=== PATIENT | female | born 1970 | race American Indian/Alaskan Native ===

== ENCOUNTER 2021-05-01 15:21 | Emergency (ER) | payer OTHER ==
--- NOTE | 2021-05-01 16:11 | XRay Report ---
CHEST 2 VIEWS INDICATION / CLINICAL INFORMATION: CHEST PAIN. COMPARISON: None available. FINDINGS: SUPPORT DEVICES: None. HEART / MEDIASTINUM: No significant abnormality. LUNGS / PLEURA: No significant pulmonary or pleural abnormality. No pneumothorax. ADDITIONAL FINDINGS: No significant additional findings. IMPRESSION: 1. No acute findings. Signer Name: Carmelo Gold MD Signed: 05/01/2021 4:07 PM Workstation Name: [id number]
[2021-05-01 16:35] LABS: Basophils % (Auto) 0.3 % (0.0-1.8); Eosinophils # (Auto) 0.1 K/mm3 (0.0-0.4); Eosinophils % (Auto) 1.3 % (0.0-4.3); Hematocrit 47.1 % (30.3-42.9); Hemoglobin 15.5 gm/dl (10.1-14.3); Lymphocytes % (Auto) 37.8 % (13.4-35.0); Mean Corpuscular HGB Conc 33 % (30-34); Mean Corpuscular Volume 89 fl (79-97); Monocytes # (Auto) 0.3 K/mm3 (0.0-0.8); Monocytes % (Auto) 6.2 % (0.0-7.3); Platelet Count 158 K/mm3 (140-440); Red Blood Count 5.31 M/mm3 (3.65-5.03); Red Cell Distribution Width 13.3 % (13.2-15.2)
[2021-05-01] MEDS ORDERED: NITROGLYCERIN 0.4 MG TAB SUBL SL PRN (16:50)
--- NOTE | 2021-05-01 16:53 | Emergency Department Report ---
ED General Adult HPI - General Chief complaint: Chest Pain Stated complaint: CHEST PAIN Time Seen by Provider: 05/01/21 15:37 Source: patient, EMS Mode of arrival: Ambulatory Limitations: No Limitations - History of Present Illness Initial comments: Patient presents by ambulance secondary to chest pain. She has been having ongoing chest pain for several days. She actually reportedly was at [place] yesterday and had a cardiac MRI done which showed an enlarged heart. Patient does not know if she has had a heart attack. She just came in because she has been having chest pain and shortness of breath. The pain is described as tightness in the substernal and left chest area. It radiates into the left arm and left jaw. She has had no fevers or chills. There is no cough or congestion associated with this. Patient has not noticed pain or swelling in the legs. EMS did administer nitro with improvement in her pain. There is no history of recent travel or trauma. Severity scale (0 -10): 4 - Related Data Previous Rx's Medication Instructions Recorded Last Taken Type Nitroglycerin [Nitrostat] 0.4 mg SL .Q5MIN PRN #30 tablet 05/01/21 Unknown Rx Allergies Allergy/AdvReac Type Severity Reaction Status Date / Time aspirin AdvReac Unknown Verified 05/01/21 15:25 ED Review of Systems ROS: Stated complaint: CHEST PAIN Other details as noted in HPI Comment: All other systems reviewed and negative Constitutional: denies: fever Eyes: denies: vision change ENT: denies: throat pain Respiratory: denies: cough Cardiovascular: as per HPI Endocrine: denies: unexplained weight loss Gastrointestinal: denies: abdominal pain Genitourinary: denies: dysuria Musculoskeletal: denies: back pain Skin: denies: rash Neurological: denies: headache Hematological/Lymphatic: denies: easy bruising ED Past Medical Hx - Past Medical History Hx Hypertension: Yes Additional medical history: Enlarged heart - Family History Family history: hypertension, other (Negative for premature coronary artery disease) - Medications Home Medications: Home Medications Medication Instructions Recorded Confirmed Last Taken Type Nitroglycerin [Nitrostat] 0.4 mg SL .Q5MIN PRN #30 tablet 05/01/21 Unknown Rx ED Physical Exam - General Limitations: No Limitations, Other (Pulse ox noted and normal) General appearance: alert, in no apparent distress - Head Head exam: Present: atraumatic, normocephalic - Eye Eye exam: Present: normal appearance, PERRL, EOMI. Absent: scleral icterus - ENT ENT exam: Present: normal orophraynx, normal external ear exam - Neck Neck exam: Present: normal inspection. Absent: tenderness, meningismus - Respiratory Respiratory exam: Present: normal lung sounds bilaterally. Absent: respiratory distress - Cardiovascular Cardiovascular Exam: Present: regular rate, normal rhythm - GI/Abdominal GI/Abdominal exam: Present: soft. Absent: tenderness - Extremities Exam Extremities exam: Present: normal capillary refill. Absent: pedal edema, calf tenderness - Back Exam Back exam: Absent: CVA tenderness (R), CVA tenderness (L) - Neurological Exam Neurological exam: Present: alert, oriented X3, CN II-XII intact. Absent: motor sensory deficit - Psychiatric Psychiatric exam: Present: normal affect, normal mood - Skin Skin exam: Present: warm, dry ED Course Vital Signs 05/01/21 05/01/21 05/01/21 15:22 16:17 17:41 Temperature 98.1 F 97.3 F L Pulse Rate 64 89 88 Respiratory 20 16 16 Rate Blood Pressure 160/90 Blood Pressure 160/90 167/94 [Left] O2 Sat by Pulse 98 100 97 Oximetry - Reevaluation(s) Reevaluation #1: 05/01/21 16:53 EMS have been met. Labs and EKG and x-ray have been ordered. Old records have been reviewed. Now, patient states that her pain is returning. Further nitrates have been ordered. Labs and EKG are still pending. Reevaluation #2: 05/01/21 17:51 Labs are noted and the patient was discharged. ED Medical Decision Making - Lab Data Result diagrams: 05/01/21 16:08 05/01/21 16:08 Rhythm strip: Normal sinus rhythm without ectopy. Monitor observe 10 seconds. - EKG Data -: EKG Interpreted by Me - EKG Data 05/01/21 17:35 [id number] shows normal sinus rhythm at 62. There is no ST elevation to suggest STEMI. There is ST depression in leads III and aVF. QRS is normal at 91. QT corrected is normal at 441. There is no old EKG for comparison. Patient has poor R wave progression. There is T wave flattening in aVL. - Radiology Data Radiology results: report reviewed - Medical Decision Making Patient who presented with chest pain or shortness of breath. She has had cardiomyopathy diagnosed and had a recent cardiac MRI. She states that stress test was done which is what demonstrated the cardiomyopathy. She was not told that she has ischemic heart disease. She is scheduled to see her medical laboratory technologist on the . At this time, there is no evidence of STEMI. She has no evidence of pneumonia or pneumothorax. She does not appear to be toxic. She does not have a wide mediastinum suggestive of aortic dissection. I suspect that her symptoms are more related to her cardiomyopathy and possibly cardiomegaly which she reports. She certainly does not have a history of ACS. She was treated symptomatically and referred for outpatient evaluation and follow-up. Heart score is 4. This would not necessitate admission. Critical Care Time: No Critical care attestation.: If time is entered above; I have spent that time in minutes in the direct care of this critically ill patient, excluding procedure time. ED Disposition Clinical Impression: Substernal chest pain, Shortness of breath, History of cardiomyopathy Disposition: 01 HOME / SELF CARE / HOMELESS Is pt being admited?: No Condition: Stable Instructions: Nonspecific Chest Pain, Adult, Shortness of Breath, Adult, [id number], Pain Without a Known Cause Additional Instructions: Take an aspirin every day. Call your medical laboratory technologist tomorrow for follow-up. Return for problems. Drink fluids. Prescriptions: Nitroglycerin [Nitrostat] 0.4 mg SL .Q5MIN PRN #30 tablet PRN Reason: Chest Pain Referrals: PRIMARY CARE, [Referring] - 3-5 Days GELY ROSARIO MD [Staff Physician] - 3-5 Days
[2021-05-01 16:56] LABS: Alanine Aminotransferase 37 units/L (7-56); Albumin 4.4 g/dL (3.9-5); Blood Urea Nitrogen 5 mg/dL (7-17); Calcium 9.5 mg/dL (8.4-10.2); Hemolysis Index 24
[2021-05-01 17:01] LABS: BUN/Creatinine Ratio 7
[2021-05-01 18:15] VITALS: BP 160/77
--- NOTE | 2021-05-03 09:13 | Electrocardiograph Report ---
[facility] Test Date: 2021-05-01 Test Time: 16:58:42 Pat Name: JUDITH RAYMUNDO Department: Room: Gender: F [employer]: CRISTIANA : 1970 Requested By: MARGARITO ALLISON Order Number: [id number] Reading MD: Senthil Bond Measurements Intervals [place] Rate: 62 P: 50 UT: 166 QRS: 219 QRSD: 91 T: 64 QT: 436 QTc: 441 Interpretive Statements Sinus rhythm nonspecific st-t No previous ECG available for comparison Electronically Signed On 05-03-2021 9:12:29 EST by Senthil Bond
== END 2021-05-01 18:39 | disposition home or self-care (01) ==
LOC: ED 15:21
DX: R07.89 Other chest pain (principal); R06.02 Shortness of breath; Z86.79 Personal history of other diseases of the circulatory system; I10 Essential (primary) hypertension; Z88.6 Allergy status to analgesic agent
CPT/HCPCS: 36415; 71046; 80053; 84484; 85025; 93005; 99284

== ENCOUNTER 2021-08-19 23:59 | Emergency (ER) | payer OTHER ==
[2021-08-20] MEDS ORDERED: HALOPERIDOL LACTATE 5 MG/1 ML INJ IM PRN (00:14)
[2021-08-20] MEDS ORDERED: LORazepam 2 MG TAB PO PRN ×2 (00:14)
[2021-08-20] MEDS ORDERED: chlordiazePOXIDE 25 MG CAP PO PRN ×2 (00:14)
[2021-08-20] MEDS ORDERED: LORazepam 2 MG/ML VIAL IM PRN (00:14)
--- NOTE | 2021-08-20 00:17 | Emergency Department Report ---
ED General Adult HPI - General Chief complaint: Psych Stated complaint: ETOH OVERDOSE Time Seen by Provider: 08/20/21 00:12 Source: patient, EMS (Verbal report received from emergency medical services. EMS documentation not available at time of chart dictation ), RN notes reviewed, old records reviewed Mode of arrival: Stretcher Limitations: Other (Intoxication. Patient not forthcoming) - History of Present Illness Initial comments: The patient was evaluated in the emergency department for symptoms described in the history of present illness. He/she was evaluated in the context of the global COVID-19 pandemic, which necessitated consideration that the patient might be at risk for infection with the virus that causes COVID-19. Institutional protocols and algorithms that pertain to the evaluation of patients at risk for COVID-19 are in a state of rapid change based on information released by regulatory bodies including the CDC and federal and state organizations. These policies and algorithms were followed during the patient's care in the emergency department. Please note that these policies, procedures and recommendations changed on a rapid basis. This is a 51-year-old female. She is not known to myself previously. She is brought to the hospital by emergency medical services. History essentially obtained entirely from EMS. EMS reports the patient was found down, with alcohol container, and and there was concern that the patient may have possibly overdosed on Benadryl. The patient's last known well time is not known. Time of ingestion is not known. EMS reports unremarkable vital signs in the field. The patient herself is uncooperative and agitated. She is intoxicated. She does not describe the qualitative nature of her symptoms. She does not describe aggravating relieving factors. No additional history is available at this time. -: unknown - Related Data Previous Rx's Medication Instructions Recorded Last Taken Type Nitroglycerin [Nitrostat] 0.4 mg SL .Q5MIN PRN #30 tablet 05/01/21 Unknown Rx Allergies Allergy/AdvReac Type Severity Reaction Status Date / Time aspirin AdvReac Unknown Verified 05/01/21 15:25 ED Review of Systems ROS: Stated complaint: ETOH OVERDOSE Other details as noted in HPI Comment: Unobtainable due to pts medical conditions ED Past Medical Hx - Past Medical History Hx Hypertension: Yes Additional medical history: Enlarged heart - Social History Smoking Status: Former Smoker Substance Use Type: Cocaine, Heroin - Medications Home Medications: Home Medications Medication Instructions Recorded Confirmed Last Taken Type Nitroglycerin [Nitrostat] 0.4 mg SL .Q5MIN PRN #30 tablet 05/01/21 Unknown Rx ED Physical Exam - General Limitations: Other (Patient is intoxicated and not forthcoming) General appearance: appears intoxicated - Head Head exam: Present: atraumatic, normocephalic - Eye Eye exam: Present: normal appearance, EOMI. Absent: nystagmus - ENT ENT exam: Present: normal exam, normal orophraynx, mucous membranes moist, normal external ear exam - Neck Neck exam: Present: normal inspection, full ROM. Absent: tenderness, menin gismus - Respiratory Respiratory exam: Present: normal lung sounds bilaterally. Absent: respiratory distress, wheezes, rales, rhonchi, stridor, decreased breath sounds - Cardiovascular Cardiovascular Exam: Present: regular rate, normal rhythm, normal heart sounds. Absent: bradycardia, tachycardia, irregular rhythm, systolic murmur, diastolic murmur, rubs, gallop - GI/Abdominal GI/Abdominal exam: Present: soft. Absent: distended, tenderness, guarding, rebound, rigid, pulsatile mass - Extremities Exam Extremities exam: Present: normal inspection, full ROM, other (2+ pulses noted in the bilateral upper and lower extremities. There is no palpable cord. negative Homans sign. Muscular compartments are soft. The pelvis is stable.). Absent: pedal edema, calf tenderness - Back Exam Back exam: Present: normal inspection. Absent: tenderness, CVA tenderness (R), CVA tenderness (L), paraspinal tenderness, vertebral tenderness - Neurological Exam Neurological exam: Present: altered (The patient awake. The patient is intoxicated), normal gait, other (There is no facial droop. The tongue is midline. EOMI. 5 out of 5 strength in 4 extremities.) - Psychiatric Psychiatric exam: Present: agitated - Skin Skin exam: Present: warm, dry, intact, normal color. Absent: rash ED Course Vital Signs 08/20/21 08/20/21 08/20/21 00:16 00:30 00:46 Temperature 97.8 F Pulse Rate 79 70 63 Respiratory 19 15 16 Rate Blood Pressure 130/97 134/87 133/89 Blood Pressure 134/87 [Left] O2 Sat by Pulse 98 94 94 Oximetry - Reevaluation(s) Reevaluation #1: 08/20/21 03:29 Differential diagnosis, include but not limited to: Closed head injury, cervical spine injury, alcohol intoxication, overdose, medical clearance for psychiatric placement Assessment and plan: 51-year-old female with possible alcohol overdose and Benadryl. She is placed on a 1013. Screening laboratory studies are essentially unremarkable. COVID swab is pending. Given alcohol intoxication and possible trauma, noncontrast CT scan of the brain and cervical spine are obtained. Noncontrast CT scan of the brain and cervical spine negative for acute findings. Psychiatric consultation is requested. COVID swab is pending. The ER will follow along as the patient provides COVID swab. holding orders are initiated. At this point time, this patient does not appear to have an immediate medical contraindication to psychiatric admission, evaluation, consultation and placement. 08/20/21 03:29 ED Medical Decision Making - Lab Data Result diagrams: 08/20/21 00:50 08/20/21 00:50 Vital Signs 08/20/21 08/20/21 08/20/21 00:16 00:30 00:46 Temperature 97.8 F Pulse Rate 79 70 63 Respiratory 19 15 16 Rate Blood Pressure 130/97 134/87 133/89 Blood Pressure 134/87 [Left] O2 Sat by Pulse 98 94 94 Oximetry Lab Results 08/20/21 08/20/21 08/20/21 Range/Units 00:42 00:42 00:50 WBC 6.6 (4.5-11.0) K/mm3 RBC 5.03 (3.65-5.03) M/mm3 Hgb 15.0 H (10.1-14.3) gm/dl Hct 44.6 H (30.3-42.9) % MCV 89 (79-97) fl MCH 30 (28-32) pg MCHC 34 (30-34) % RDW 13.4 (13.2-15.2) % Plt Count 191 (140-440) K/mm3 Lymph % (Auto) 40.1 H (13.4-35.0) % [place] % (Auto) 5.0 (0.0-7.3) % Eos % (Auto) 0.6 (0.0-4.3) % Baso % (Auto) 0.2 (0.0-1.8) % Lymph # (Auto) 2.7 (1.2-5.4) K/mm3 [place] # (Auto) 0.3 (0.0-0.8) K/mm3 Eos # (Auto) 0.0 (0.0-0.4) K/mm3 Baso # (Auto) 0.0 (0.0-0.1) K/mm3 Seg Neutrophils % 54.1 (40.0-70.0) % Seg Neutrophils # 3.6 (1.8-7.7) K/mm3 PT (12.2-14.9) Sec. INR (0.87-1.13) APTT (24.2-36.6) Sec. Sodium (137-145) mmol/L Potassium (3.6-5.0) mmol/L Chloride (98-107) mmol/L Carbon Dioxide (22-30) mmol/L Anion Gap mmol/L BUN (7-17) mg/dL Creatinine (0.6-1.2) mg/dL Estimated GFR ml/min BUN/Creatinine Ratio % Glucose (65-100) mg/dL Calcium (8.4-10.2) mg/dL Magnesium (1.7-2.3) mg/dL Total Bilirubin (0.1-1.2) mg/dL AST (5-40) units/L ALT (7-56) units/L Alkaline Phosphatase (35-129) units/L Total Creatine Kinase (30-135) units/L Total Protein (6.3-8.2) g/dL Albumin (3.9-5) g/dL Albumin/Globulin Ratio % TSH (0.270-4.200) mlU/mL Urine Color Yellow (Yellow) Urine Turbidity Clear (Clear) Urine pH 5.0 (5.0-7.0) Ur Specific [place] 1.008 (1.003-1.030) Urine Protein <15 mg/dl (Negative) mg/dL Urine Glucose (UA) Neg (Negative) mg/dL Urine Ketones Neg (Negative) mg/dL Urine Blood Neg (Negative) Urine Nitrite Neg (Negative) Urine Bilirubin Neg (Negative) Urine Urobilinogen < 2.0 (<2.0) mg/dL Ur Leukocyte Esterase Neg (Negative) Urine WBC (Auto) 1.0 (0.0-6.0) /HPF Urine RBC (Auto) < 1.0 (0.0-6.0) /HPF U Epithel Cells (Auto) 1.0 (0-13.0) /HPF Salicylates (2.8-20.0) mg/dL Urine Opiates Screen Presumptive negative Urine Methadone Screen Presumptive negative Acetaminophen (10.0-30.0) ug/mL Ur Barbiturates Screen Presumptive negative Ur Phencyclidine Scrn Presumptive negative Ur Amphetamines Screen Presumptive negative U Benzodiazepines Scrn Presumptive negative Urine Cocaine Screen Presumptive negative U Marijuana (THC) Screen Presumptive negative Drugs of Abuse Note Disclamer Plasma/Serum Alcohol (0-0.07) % 08/20/21 08/20/21 08/20/21 Range/Units 00:50 00:50 00:50 WBC (4.5-11.0) K/mm3 RBC (3.65-5.03) M/mm3 Hgb (10.1-14.3) gm/dl Hct (30.3-42.9) % MCV (79-97) fl MCH (28-32) pg MCHC (30-34) % RDW (13.2-15.2) % Plt Count (140-440) K/mm3 Lymph % (Auto) (13.4-35.0) % [place] % (Auto) (0.0-7.3) % Eos % (Auto) (0.0-4.3) % Baso % (Auto) (0.0-1.8) % Lymph # (Auto) (1.2-5.4) K/mm3 [place] # (Auto) (0.0-0.8) K/mm3 Eos # (Auto) (0.0-0.4) K/mm3 Baso # (Auto) (0.0-0.1) K/mm3 Seg Neutrophils % (40.0-70.0) % Seg Neutrophils # (1.8-7.7) K/mm3 PT (12.2-14.9) Sec. INR (0.87-1.13) APTT (24.2-36.6) Sec. Sodium 143 (137-145) mmol/L Potassium 3.7 (3.6-5.0) mmol/L Chloride 105.6 (98-107) mmol/L Carbon Dioxide 25 (22-30) mmol/L Anion Gap 16 mmol/L BUN 7 (7-17) mg/dL Creatinine 0.7 (0.6-1.2) mg/dL Estimated GFR > 60 ml/min BUN/Creatinine Ratio 10 % Glucose 107 H (65-100) mg/dL Calcium 9.0 (8.4-10.2) mg/dL Magnesium (1.7-2.3) mg/dL Total Bilirubin 0.20 (0.1-1.2) mg/dL AST 39 (5-40) units/L ALT 27 (7-56) units/L Alkaline Phosphatase 84 (35-129) units/L Total Creatine Kinase (30-135) units/L Total Protein 7.1 (6.3-8.2) g/dL Albumin 4.3 (3.9-5) g/dL Albumin/Globulin Ratio 1.5 % TSH 1.550 (0.270-4.200) mlU/mL Urine Color (Yellow) Urine Turbidity (Clear) Urine pH (5.0-7.0) Ur Specific [place] (1.003-1.030) Urine Protein (Negative) mg/dL Urine Glucose (UA) (Negative) mg/dL Urine Ketones (Negative) mg/dL Urine Blood (Negative) Urine Nitrite (Negative) Urine Bilirubin (Negative) Urine Urobilinogen (<2.0) mg/dL Ur Leukocyte Esterase (Negative) Urine WBC (Auto) (0.0-6.0) /HPF Urine RBC (Auto) (0.0-6.0) /HPF U Epithel Cells (Auto) (0-13.0) /HPF Salicylates < 0.3 L (2.8-20.0) mg/dL Urine Opiates Screen Urine Methadone Screen Acetaminophen (10.0-30.0) ug/mL Ur Barbiturates Screen Ur Phencyclidine Scrn Ur Amphetamines Screen U Benzodiazepines Scrn Urine Cocaine Screen U Marijuana (THC) Screen Drugs of Abuse Note Plasma/Serum Alcohol (0-0.07) % 08/20/21 08/20/21 08/20/21 Range/Units 00:50 00:50 00:50 WBC (4.5-11.0) K/mm3 RBC (3.65-5.03) M/mm3 Hgb (10.1-14.3) gm/dl Hct (30.3-42.9) % MCV (79-97) fl MCH (28-32) pg MCHC (30-34) % RDW (13.2-15.2) % Plt Count (140-440) K/mm3 Lymph % (Auto) (13.4-35.0) % [place] % (Auto) (0.0-7.3) % Eos % (Auto) (0.0-4.3) % Baso % (Auto) (0.0-1.8) % Lymph # (Auto) (1.2-5.4) K/mm3 [place] # (Auto) (0.0-0.8) K/mm3 Eos # (Auto) (0.0-0.4) K/mm3 Baso # (Auto) (0.0-0.1) K/mm3 Seg Neutrophils % (40.0-70.0) % Seg Neutrophils # (1.8-7.7) K/mm3 PT 12.7 (12.2-14.9) Sec. INR 0.84 L (0.87-1.13) APTT 29.2 (24.2-36.6) Sec. Sodium (137-145) mmol/L Potassium (3.6-5.0) mmol/L Chloride (98-107) mmol/L Carbon Dioxide (22-30) mmol/L Anion Gap mmol/L BUN (7-17) mg/dL Creatinine (0.6-1.2) mg/dL Estimated GFR ml/min BUN/Creatinine Ratio % Glucose (65-100) mg/dL Calcium (8.4-10.2) mg/dL Magnesium (1.7-2.3) mg/dL Total Bilirubin (0.1-1.2) mg/dL AST (5-40) units/L ALT (7-56) units/L Alkaline Phosphatase (35-129) units/L Total Creatine Kinase (30-135) units/L Total Protein (6.3-8.2) g/dL Albumin (3.9-5) g/dL Albumin/Globulin Ratio % TSH (0.270-4.200) mlU/mL Urine Color (Yellow) Urine Turbidity (Clear) Urine pH (5.0-7.0) Ur Specific [place] (1.003-1.030) Urine Protein (Negative) mg/dL Urine Glucose (UA) (Negative) mg/dL Urine Ketones (Negative) mg/dL Urine Blood (Negative) Urine Nitrite (Negative) Urine Bilirubin (Negative) Urine Urobilinogen (<2.0) mg/dL Ur Leukocyte Esterase (Negative) Urine WBC (Auto) (0.0-6.0) /HPF Urine RBC (Auto) (0.0-6.0) /HPF U Epithel Cells (Auto) (0-13.0) /HPF Salicylates (2.8-20.0) mg/dL Urine Opiates Screen Urine Methadone Screen Acetaminophen 5.0 L (10.0-30.0) ug/mL Ur Barbiturates Screen Ur Phencyclidine Scrn Ur Amphetamines Screen U Benzodiazepines Scrn Urine Cocaine Screen U Marijuana (THC) Screen Drugs of Abuse Note Plasma/Serum Alcohol 0.15 H (0-0.07) % 08/20/21 Range/Units 00:50 WBC (4.5-11.0) K/mm3 RBC (3.65-5.03) M/mm3 Hgb (10.1-14.3) gm/dl Hct (30.3-42.9) % MCV (79-97) fl MCH (28-32) pg MCHC (30-34) % RDW (13.2-15.2) % Plt Count (140-440) K/mm3 Lymph % (Auto) (13.4-35.0) % [place] % (Auto) (0.0-7.3) % Eos % (Auto) (0.0-4.3) % Baso % (Auto) (0.0-1.8) % Lymph # (Auto) (1.2-5.4) K/mm3 [place] # (Auto) (0.0-0.8) K/mm3 Eos # (Auto) (0.0-0.4) K/mm3 Baso # (Auto) (0.0-0.1) K/mm3 Seg Neutrophils % (40.0-70.0) % Seg Neutrophils # (1.8-7.7) K/mm3 PT (12.2-14.9) Sec. INR (0.87-1.13) APTT (24.2-36.6) Sec. Sodium (137-145) mmol/L Potassium (3.6-5.0) mmol/L Chloride (98-107) mmol/L Carbon Dioxide (22-30) mmol/L Anion Gap mmol/L BUN (7-17) mg/dL Creatinine (0.6-1.2) mg/dL Estimated GFR ml/min BUN/Creatinine Ratio % Glucose (65-100) mg/dL Calcium (8.4-10.2) mg/dL Magnesium 2.10 (1.7-2.3) mg/dL Total Bilirubin (0.1-1.2) mg/dL AST (5-40) units/L ALT (7-56) units/L Alkaline Phosphatase (35-129) units/L Total Creatine Kinase 159 H (30-135) units/L Total Protein (6.3-8.2) g/dL Albumin (3.9-5) g/dL Albumin/Globulin Ratio % TSH (0.270-4.200) mlU/mL Urine Color (Yellow) Urine Turbidity (Clear) Urine pH (5.0-7.0) Ur Specific [place] (1.003-1.030) Urine Protein (Negative) mg/dL Urine Glucose (UA) (Negative) mg/dL Urine Ketones (Negative) mg/dL Urine Blood (Negative) Urine Nitrite (Negative) Urine Bilirubin (Negative) Urine Urobilinogen (<2.0) mg/dL Ur Leukocyte Esterase (Negative) Urine WBC (Auto) (0.0-6.0) /HPF Urine RBC (Auto) (0.0-6.0) /HPF U Epithel Cells (Auto) (0-13.0) /HPF Salicylates (2.8-20.0) mg/dL Urine Opiates Screen Urine Methadone Screen Acetaminophen (10.0-30.0) ug/mL Ur Barbiturates Screen Ur Phencyclidine Scrn Ur Amphetamines Screen U Benzodiazepines Scrn Urine Cocaine Screen U Marijuana (THC) Screen Drugs of Abuse Note Plasma/Serum Alcohol (0-0.07) % - EKG Data -: EKG Interpreted by Tx EKG shows normal: sinus rhythm Rate: normal - EKG Data Interpretation: unchanged when compared t (Unchanged from prior EKG from April 2021) 08/20/21 03:25 The EKG is interpreted at 01: 00 a.m. There is a sinus rhythm, with a rate of 67 bpm. There is a rightward axis deviation. There is normal P wave axis. Poor R wave progression. Motion artifact. Atrial enlargement. Abnormal EKG. Not a STEMI. WV interval 170 ms. QTc 4 6 0 ms. - Radiology Data Radiology results: pending, report reviewed, image reviewed CT CERVICAL SPINE WITHOUT CONTRAST INDICATION / CLINICAL INFORMATION: E.T.O.H. intoxication, found down, ingestion. TECHNIQUE: Axial CT images were obtained through the cervical spine. Sagittal and coronal reformatted images were produced. All CT scans at this location are performed using CT dose reduction f or ALARA by means of automated exposure control. COMPARISON: None available. FINDINGS: VERTEBRAE: No significant abnormality. ALIGNMENT: No significant abnormality. DISC SPACES: Mild/moderate degenerative disc disease throughout the cervical spine, most pronounced at C5-C6. FACET JOINTS: No significant abnormality. CRANIOCERVICAL JUNCTION:No significant abnormality. SPINAL CANAL: No significant abnormality. PARASPINAL SOFT TISSUES: No significant abnormality. ADDITIONAL FINDINGS: None. LUNG APICES: No significant abnormality of visualized lungs. IMPRESSION: 1. No acute fracture or static subluxation of the cervical spine. 2. [id number] degenerative disc disease of the cervical spine. Signer Name: Markus Farmer DO Signed: 08/20/2021 12:40 AM Workstation Name: [id number] CT HEAD WITHOUT CONTRAST INDICATION / CLINICAL INFORMATION: Medical Clearance Psych. TECHNIQUE: All CT scans at this location are performed using CT dose reduction for ALARA by means of automated exposure control. COMPARISON: None available. FINDINGS: HEMORRHAGE: None. EXTRA-AXIAL SPACES: Normal in size and morphology for the patient's age. VENTRICULAR SYSTEM: Normal in size and morphology for the patient's age. CEREBRAL PARENCHYMA: No significant abnormality. No acute territorial infarct. MIDLINE SHIFT / HERNIATION: None. CEREBELLUM / BRAINSTEM: No significant abnormality. ORBITS: Normal as visualized SOFT TISSUES: No significant abnormality. SKULL: No significant abnormality. PARANASAL SINUSES / MASTOID AIR CELLS: Normal as visualized ADDITIONAL FINDINGS: None. IMPRESSION: 1. No acute intracranial abnormality. Signer Name: Markus Farmer DO Signed: 08/20/2021 12:38 AM Workstation Name: [id number] [facility] [address] [place] [address] XRay Report Signed Patient: JUDITH RAYMUNDO MR#: [id number] : 1970 Acct:[id number] Age/Sex: 51 / F ADM Date: 08/19/21 Loc: ED Attending Dr: Ordering Physician: SHAW CLOLINS MD Date of Service: 08/20/21 Procedure(s): XR chest 1V ap Accession Number(s): [id number] cc: SHAW COLLINS MD Fluoro Time In Minutes: CHEST 1 VIEW 08/19/2021 11:38 PM INDICATION / CLINICAL INFORMATION: Medical Clearance Psych. COMPARISON: 05/01/2021 FINDINGS: SUPPORT DEVICES: None. HEART / MEDIASTINUM: No significant abnormality. LUNGS / PLEURA: Patchy airspace disease within the left lung. No pneumothorax. ADDITIONAL FINDINGS: No significant additional findings. IMPRESSION: 1. Patchy airspace disease within the left lung which may represent infectious process. Signer Name: Markus Farmer DO Signed: 08/20/2021 12:52 AM Workstation Name: [id number] Transcribed By: ERROL Dictated By: MARKUS FARMER DO Electronically Authenticated By: MARKUS FARMER DO Signed Date/Time: 08/20/2151 DD/ TD/TT: Critical care attestation.: If time is entered above; I have spent that time in minutes in the direct care of this critically ill patient, excluding procedure time. ED Disposition Clinical Impression: Alcohol intoxication, Fall, Overdose, Medical clearance for psychiatric admission Disposition: [address] [place] [address] Is pt being admited?: No Does the pt Need Aspirin: No Condition: Good Referrals: MADIE BOLIVAR MD [Primary Care Provider] - 3-5 Days
--- NOTE | 2021-08-20 00:56 | XRay Report ---
CHEST 1 VIEW 08/19/2021 11:38 PM INDICATION / CLINICAL INFORMATION: Medical Clearance Psych. COMPARISON: 05/01/2021 FINDINGS: SUPPORT DEVICES: None. HEART / MEDIASTINUM: No significant abnormality. LUNGS / PLEURA: Patchy airspace disease within the left lung. No pneumothorax. ADDITIONAL FINDINGS: No significant additional findings. IMPRESSION: 1. Patchy airspace disease within the left lung which may represent infectious process. Signer Name: Markus Sorenson DO Signed: 08/20/2021 12:52 AM Workstation Name: [id number]
[2021-08-20 01:03] LABS: Bilirubin,Urine NEG (Negative); Blood,Urine NEG (Negative); Color,Urine Yellow (Yellow); Protein,Urine <15 mg/dL mg/dL (Negative); Urobilinogen,Urine < 2.0 mg/dL (<2.0)
[2021-08-20 01:04] LABS: RBC,Urine < 1.0 /HPF (0.0-6.0)
[2021-08-20 01:11] LABS: Basophils % (Auto) 0.2 % (0.0-1.8); Eosinophils % (Auto) 0.6 % (0.0-4.3); Hematocrit 44.6 % (30.3-42.9); Lymphocytes # (Auto) 2.7 K/mm3 (1.2-5.4); Lymphocytes % (Auto) 40.1 % (13.4-35.0); Mean Corpuscular HGB Conc 34 % (30-34); Mean Corpuscular Volume 89 fl (79-97); Monocytes # (Auto) 0.3 K/mm3 (0.0-0.8); Platelet Count 191 K/mm3 (140-440); Red Blood Count 5.03 M/mm3 (3.65-5.03); Red Cell Distribution Width 13.4 % (13.2-15.2)
[2021-08-20 01:15] LABS: Amphetamine Screen,Urine PRESUMPTIVE NEGATIVE; Benzodiazepines Screen,Urine PRESUMPTIVE NEGATIVE; Cannabinoid Screen,Urine PRESUMPTIVE NEGATIVE; Cocaine Screen,Urine PRESUMPTIVE NEGATIVE; Methadone Screen,Urine PRESUMPTIVE NEGATIVE; Opiate Screen,Urine PRESUMPTIVE NEGATIVE
[2021-08-20 01:25] LABS: Alanine Aminotransferase 27 units/L (7-56); Albumin 4.3 g/dL (3.9-5); Blood Urea Nitrogen 7 mg/dL (7-17); Hemolysis Index 23
[2021-08-20 01:28] LABS: BUN/Creatinine Ratio 10
[2021-08-20 01:39] LABS: INR 0.84 (0.87-1.13)
[2021-08-20 01:40] LABS: Partial Thromboplastin Time 29.2 Sec. (24.2-36.6)
--- NOTE | 2021-08-20 01:43 | Cat Scan Report ---
CT HEAD WITHOUT CONTRAST INDICATION / CLINICAL INFORMATION: Medical Clearance Psych. TECHNIQUE: All CT scans at this location are performed using CT dose reduction for ALARA by means of automated exposure control. COMPARISON: None available. FINDINGS: HEMORRHAGE: None. EXTRA-AXIAL SPACES: Normal in size and morphology for the patient's age. VENTRICULAR SYSTEM: Normal in size and morphology for the patient's age. CEREBRAL PARENCHYMA: No significant abnormality. No acute territorial infarct. MIDLINE SHIFT / HERNIATION: None. CEREBELLUM / BRAINSTEM: No significant abnormality. ORBITS: Normal as visualized SOFT TISSUES: No significant abnormality. SKULL: No significant abnormality. PARANASAL SINUSES / MASTOID AIR CELLS: Normal as visualized ADDITIONAL FINDINGS: None. IMPRESSION: 1. No acute intracranial abnormality. Signer Name: Markus Sorenson DO Signed: 08/20/2021 1:38 AM Workstation Name: [id number]
--- NOTE | 2021-08-20 01:45 | Cat Scan Report ---
CT CERVICAL SPINE WITHOUT CONTRAST INDICATION / CLINICAL INFORMATION: E.T.O.H. intoxication, found down, ingestion. TECHNIQUE: Axial CT images were obtained through the cervical spine. Sagittal and coronal reformatted images were produced. All CT scans at this location are performed using CT dose reduction for ALARA by means of automated exposure control. COMPARISON: None available. FINDINGS: VERTEBRAE: No significant abnormality. ALIGNMENT: No significant abnormality. DISC SPACES: Mild/moderate degenerative disc disease throughout the cervical spine, most pronounced a t C5-C6. FACET JOINTS: No significant abnormality. CRANIOCERVICAL JUNCTION:No significant abnormality. SPINAL CANAL: No significant abnormality. PARASPINAL SOFT TISSUES: No significant abnormality. ADDITIONAL FINDINGS: None. LUNG APICES: No significant abnormality of visualized lungs. IMPRESSION: 1. No acute fracture or static subluxation of the cervical spine. 2. [id number] degenerative disc disease of the cervical spine. Signer Name: Makrus Sorenson DO Signed: 08/20/2021 1:40 AM Workstation Name: [id number]
[2021-08-20] MEDS ORDERED: AMOXICILLIN 500 MG CAP PO SCH (06:00)
[2021-08-20] MEDS ORDERED: AZITHROMYCIN 250 MG TAB PO ONE (06:00)
--- NOTE | 2021-08-20 10:44 | Event Note ---
Date: 08/20/21 Got a call from the lab that this patient rapid Covid is positive. Pt is currently waiting for acceptance to [facility].
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
--- NOTE | 2021-08-20 12:19 | Electrocardiograph Report ---
[facility] Test Date: 2021-08-20 Test Time: 01:00:18 Pat Name: JUDITH RAYMUNDO Department: Room: Gender: F Molding Process Technician: KASSANDRA : 1970 Requested By: SHAW COLLINS Order Number: [id number] Reading MD: Dm Rodrigues Measurements Intervals [place] Rate: 67 P: 69 ME: 197 QRS: 103 QRSD: 91 T: 70 QT: 435 QTc: 460 Interpretive Statements Sinus rhythm Left atrial enlargement Right axis deviation Low voltage, precordial leads Compared to ECG 05/01/2021 16:58:42 Atrial abnormality now present Right-axis deviation now present Low QRS voltage now present Electronically Signed On 08-20-2021 12:18:53 EDT by Dm Rodrigues
[2021-08-20] MEDS: MULTIVITAMINS ,THERAPEUTIC TAB PO SCH (12:41)
[2021-08-20] MEDS: DOXYCYCLINE 100 MG CAP PO SCH (13:04)
[2021-08-21] MEDS ORDERED: AZITHROMYCIN 250 MG TAB PO SCH (10:00)
--- NOTE | 2021-08-21 10:44 | Progress Note ---
Subjective - Reason for Consult Consult date: 08/21/21 Reason for consult: OD - Chief Complaint Chief complaint: The patient was seen this morning. She is calm, and pleasant. She reports feeling better. She denies any current suicidal/homicidal and denies hallucinations. No withdrawal symptoms noted. REVIEW OF SYSTEMS Constitutional: Negative for weight loss ENT: Negative for stridor Respiratory: Negative for cough or hemoptysis All other systems reviewed and are negative MENTAL STATUS EXAMINATION General Appearance and Behavior: Age appropriate, good hygiene, wearing appropriate clothes, fair eye contact, cooperative polite with questioning. Cooperation: Participating/engaged Psychomotor Behavior: unremarkable and within normal limits Mood: calm Affect and affective range: congruent with mood Thought Process: Goal directed Thought Content: Reality oriented Speech: Normal volume, Regular rate and rhythm, Suicidal Ideation:Denies Homicidal Ideation: Denies Hallucinations: Denies Delusions: None Impulse Control: Normal Insight and Judgment: Limited insight and judgment, Memory: Normal, Attention: Normal, Orientation: Alert, oriented x4 Assessment and Plan (1) Major depressive disorder (2)[place] Treatment [place] 1013 Continue home meds. Start Sertraline 25mg po daily Sitter: Per primary Medical: Per primary Disposition:Do not recommend acute inpatient psychiatric treatment. Music Cataloguer will provide patient with psychiatric out patient resources and safety plan Will sign off. Thanks Case staffed with Dr. Palomino Mental Status Exam - Vital signs Last Vital Signs Temp 98.1 F 08/20/21 11:24 Pulse 15 L 08/20/21 15:32 Resp 14 08/20/21 11:24 BP 116/76 08/20/21 11:24 Pulse Ox 99 08/20/21 11:24
[2021-08-21] MEDS: MULTIVITAMINS ,THERAPEUTIC TAB PO SCH (11:22)
[2021-08-21] MEDS: DOXYCYCLINE 100 MG CAP PO SCH (11:22)
[2021-08-21 11:39] VITALS: BP 128/74
--- NOTE | 2021-08-21 12:32 | Event Note ---
Date: 08/21/21 The patient was evaluated in the emergency department for symptoms described in the history of present illness. He/she was evaluated in the context of the global COVID-19 pandemic, which necessitated consideration that the patient might be at risk for infection with the virus that causes COVID-19. Institutional protocols and algorithms that pertain to the evaluation of patients at risk for COVID-19 are in a state of rapid change based on information released by regulatory bodies including the CDC and federal and state organizations. These policies and algorithms were followed during the patient's care in the emergency department. Please note that these policies, procedures and recommendations changed on a rapid basis. Laboratory studies, vital signs, nursing documentation, ER documentation, and psychiatric documentation are reviewed and appreciated. Nursing team reports no acute events this morning or concerns. The patient is awake and ambulating and does not appear to be in any acute distress. The patient was deemed medically suitable for psychiatric disposition and placement during her initial ER evaluation. The patient continues to remain medically suitable for psychiatric placement and disposition. sHe is currently pending psychiatric placement. The psychiatric team have advised that she currently does not meet criteria for 1013 hold or involuntary confinement. The patient states that she is not having chest pain or shortness of breath or any physical pain at this time. I started this patient empirically on antibiotics a few nights ago, because of nonspecific x-ray chest findings. However she appears to be COVID-19 positive. This is the most likely explanation for chest x-ray findings. Would not discharge with antibiotics at this time. She may take a multivitamin [id number]. She has been provided outpatient resources by the psychiatry team. She is suitable for discharge now with outpatient follow-up. She does not meet criteria for 1013 hold or involuntary confinement. She does not appear to have an emergent medical condition present at this time which would preclude discharge Vital Signs 08/20/21 08/20/21 08/20/21 00:16 00:30 00:46 Temperature 97.8 F Pulse Rate 79 70 63 Respiratory 19 15 16 Rate Blood Pressure 130/97 134/87 133/89 Blood Pressure 134/87 [Left] O2 Sat by Pulse 98 94 94 Oximetry 08/20/21 08/20/21 08/20/21 01:00 02:02 02:16 Temperature Pulse Rate 64 Respiratory 17 Rate Blood Pressure 133/89 134/87 134/87 Blood Pressure [Left] O2 Sat by Pulse 94 95 97 Oximetry 08/20/21 08/20/21 08/20/21 02:30 02:46 03:00 Temperature Pulse Rate Respiratory Rate Blood Pressure 118/82 118/82 118/82 Blood Pressure [Left] O2 Sat by Pulse 96 95 96 Oximetry 08/20/21 08/20/21 08/20/21 03:16 03:30 03:46 Temperature Pulse Rate 54 L 62 Respiratory 17 18 Rate Blood Pressure 118/82 134/65 148/92 Blood Pressure [Left] O2 Sat by Pulse 94 97 98 Oximetry 08/20/21 08/20/21 08/20/21 04:00 04:16 04:30 Temperature Pulse Rate 61 66 67 Respiratory 17 16 15 Rate Blood Pressure 123/82 148/92 121/81 Blood Pressure [Left] O2 Sat by Pulse 97 98 97 Oximetry 08/20/21 08/20/21 08/20/21 04:46 05:00 05:16 Temperature Pulse Rate 61 64 65 Respiratory 16 15 15 Rate Blood Pressure 123/82 119/77 103/77 Blood Pressure [Left] O2 Sat by Pulse 95 97 96 Oximetry 08/20/21 08/20/21 08/20/21 05:30 05:46 06:00 Temperature Pulse Rate 62 60 65 Respiratory 18 18 24 Rate Blood Pressure 102/72 112/72 119/66 Blood Pressure [Left] O2 Sat by Pulse 95 97 96 Oximetry 08/20/21 08/20/21 08/20/21 06:16 06:30 06:46 Temperature Pulse Rate 61 68 56 L Respiratory 15 15 14 Rate Blood Pressure 127/89 128/86 129/85 Blood Pressure [Left] O2 Sat by Pulse 87 96 96 Oximetry 08/20/21 08/20/21 08/20/21 07:00 11:24 15:32 Temperature 98.1 F Pulse Rate 59 L 83 15 L Respiratory 20 14 Rate Blood Pressure 114/73 Blood Pressure 116/76 [Left] O2 Sat by Pulse 95 99 Oximetry 08/21/21 11:36 Temperature 97.8 F Pulse Rate 88 Respiratory 20 Rate Blood Pressure Blood Pressure 128/74 [Left] O2 Sat by Pulse 89 Oximetry Lab Results 08/20/21 08/20/21 08/20/21 Range/Units 00:42 00:42 00:50 WBC 6.6 (4.5-11.0) K/mm3 RBC 5.03 (3.65-5.03) M/mm3 Hgb 15.0 H (10.1-14.3) gm/dl Hct 44.6 H (30.3-42.9) % MCV 89 (79-97) fl MCH 30 (28-32) pg MCHC 34 (30-34) % RDW 13.4 (13.2-15.2) % Plt Count 191 (140-440) K/mm3 Lymph % (Auto) 40.1 H (13.4-35.0) % Cedar % (Auto) 5.0 (0.0-7.3) % Eos % (Auto) 0.6 (0.0-4.3) % Baso % (Auto) 0.2 (0.0-1.8) % Lymph # (Auto) 2.7 (1.2-5.4) K/mm3 [place] # (Auto) 0.3 (0.0-0.8) K/mm3 Eos # (Auto) 0.0 (0.0-0.4) K/mm3 Baso # (Auto) 0.0 (0.0-0.1) K/mm3 Seg Neutrophils % 54.1 (40.0-70.0) % Seg Neutrophils # 3.6 (1.8-7.7) K/mm3 PT (12.2-14.9) Sec. INR (0.87-1.13) APTT (24.2-36.6) Sec. Sodium (137-145) mmol/L Potassium (3.6-5.0) mmol/L Chloride (98-107) mmol/L Carbon Dioxide (22-30) mmol/L Anion Gap mmol/L BUN (7-17) mg/dL Creatinine (0.6-1.2) mg/dL Estimated GFR ml/min BUN/Creatinine Ratio % Glucose (65-100) mg/dL Calcium (8.4-10.2) mg/dL Magnesium (1.7-2.3) mg/dL Total Bilirubin (0.1-1.2) mg/dL AST (5-40) units/L ALT (7-56) units/L Alkaline Phosphatase (35-129) units/L Total Creatine Kinase (30-135) units/L Total Protein (6.3-8.2) g/dL Albumin (3.9-5) g/dL Albumin/Globulin Ratio % TSH (0.270-4.200) mlU/mL Urine Color Yellow (Yellow) Urine Turbidity Clear (Clear) Urine pH 5.0 (5.0-7.0) Ur Specific [place] 1.008 (1.003-1.030) Urine Protein <15 mg/dl (Negative) mg/dL Urine Glucose (UA) Neg (Negative) mg/dL Urine Ketones Neg (Negative) mg/dL Urine Blood Neg (Negative) Urine Nitrite Neg (Negative) Urine Bilirubin Neg (Negative) Urine Urobilinogen < 2.0 (<2.0) mg/dL Ur Leukocyte Esterase Neg (Negative) Urine WBC (Auto) 1.0 (0.0-6.0) /HPF Urine RBC (Auto) < 1.0 (0.0-6.0) /HPF U Epithel Cells (Auto) 1.0 (0-13.0) /HPF Salicylates (2.8-20.0) mg/dL Urine Opiates Screen Presumptive negative Urine Methadone Screen Presumptive negative Acetaminophen (10.0-30.0) ug/mL Ur Barbiturates Screen Presumptive negative Ur Phencyclidine Scrn Presumptive negative Ur Amphetamines Screen Presumptive negative U Benzodiazepines Scrn Presumptive negative Urine Cocaine Screen Presumptive negative U Marijuana (THC) Screen Presumptive negative Drugs of Abuse Note Disclamer Plasma/Serum Alcohol (0-0.07) % SARS-CoV-2 (PCR) (Negative) 08/20/21 08/20/21 08/20/21 Range/Units 00:50 00:50 00:50 WBC (4.5-11.0) K/mm3 RBC (3.65-5.03) M/mm3 Hgb (10.1-14.3) gm/dl Hct (30.3-42.9) % MCV (79-97) fl MCH (28-32) pg MCHC (30-34) % RDW (13.2-15.2) % Plt Count (140-440) K/mm3 Lymph % (Auto) (13.4-35.0) % Cedar % (Auto) (0.0-7.3) % Eos % (Auto) (0.0-4.3) % Baso % (Auto) (0.0-1.8) % Lymph # (Auto) (1.2-5.4) K/mm3 Cedar # (Auto) (0.0-0.8) K/mm3 Eos # (Auto) (0.0-0.4) K/mm3 Baso # (Auto) (0.0-0.1) K/mm3 Seg Neutrophils % (40.0-70.0) % Seg Neutrophils # (1.8-7.7) K/mm3 PT (12.2-14.9) Sec. INR (0.87-1.13) APTT (24.2-36.6) Sec. Sodium 143 (137-145) mmol/L Potassium 3.7 (3.6-5.0) mmol/L Chloride 105.6 (98-107) mmol/L Carbon Dioxide 25 (22-30) mmol/L Anion Gap 16 mmol/L BUN 7 (7-17) mg/dL Creatinine 0.7 (0.6-1.2) mg/dL Estimated GFR > 60 ml/min BUN/Creatinine Ratio 10 % Glucose 107 H (65-100) mg/dL Calcium 9.0 (8.4-10.2) mg/dL Magnesium (1.7-2.3) mg/dL Total Bilirubin 0.20 (0.1-1.2) mg/dL AST 39 (5-40) units/L ALT 27 (7-56) units/L Alkaline Phosphatase 84 (35-129) units/L Total Creatine Kinase (30-135) units/L Total Protein 7.1 (6.3-8.2) g/dL Albumin 4.3 (3.9-5) g/dL Albumin/Globulin Ratio 1.5 % TSH 1.550 (0.270-4.200) mlU/mL Urine Color (Yellow) Urine Turbidity (Clear) Urine pH (5.0-7.0) Ur Specific [place] (1.003-1.030) Urine Protein (Negative) mg/dL Urine Glucose (UA) (Negative) mg/dL Urine Ketones (Negative) mg/dL Urine Blood (Negative) Urine Nitrite (Negative) Urine Bilirubin (Negative) Urine Urobilinogen (<2.0) mg/dL Ur Leukocyte Esterase (Negative) Urine WBC (Auto) (0.0-6.0) /HPF Urine RBC (Auto) (0.0-6.0) /HPF U Epithel Cells (Auto) (0-13.0) /HPF Salicylates < 0.3 L (2.8-20.0) mg/dL Urine Opiates Screen Urine Methadone Screen Acetaminophen (10.0-30.0) ug/mL Ur Barbiturates Screen Ur Phencyclidine Scrn Ur Amphetamines Screen U Benzodiazepines Scrn Urine Cocaine Screen U Marijuana (THC) Screen Drugs of Abuse Note Plasma/Serum Alcohol (0-0.07) % SARS-CoV-2 (PCR) (Negative) 08/20/21 08/20/21 08/20/21 Range/Units 00:50 00:50 00:50 WBC (4.5-11.0) K/mm3 RBC (3.65-5.03) M/mm3 Hgb (10.1-14.3) gm/dl Hct (30.3-42.9) % MCV (79-97) fl MCH (28-32) pg MCHC (30-34) % RDW (13.2-15.2) % Plt Count (140-440) K/mm3 Lymph % (Auto) (13.4-35.0) % [place]edar % (Auto) (0.0-7.3) % Eos % (Auto) (0.0-4.3) % Baso % (Auto) (0.0-1.8) % Lymph # (Auto) (1.2-5.4) K/mm3 [place] # (Auto) (0.0-0.8) K/mm3 Eos # (Auto) (0.0-0.4) K/mm3 Baso # (Auto) (0.0-0.1) K/mm3 Seg Neutrophils % (40.0-70.0) % Seg Neutrophils # (1.8-7.7) K/mm3 PT 12.7 (12.2-14.9) Sec. INR 0.84 L (0.87-1.13) APTT 29.2 (24.2-36.6) Sec. Sodium (137-145) mmol/L Potassium (3.6-5.0) mmol/L Chloride (98-107) mmol/L Carbon Dioxide (22-30) mmol/L Anion Gap mmol/L BUN (7-17) mg/dL Creatinine (0.6-1.2) mg/dL Estimated GFR ml/min BUN/Creatinine Ratio % Glucose (65-100) mg/dL Calcium (8.4-10.2) mg/dL Magnesium (1.7-2.3) mg/dL Total Bilirubin (0.1-1.2) mg/dL AST (5-40) units/L ALT (7-56) units/L Alkaline Phosphatase (35-129) units/L Total Creatine Kinase (30-135) units/L Total Protein (6.3-8.2) g/dL Albumin (3.9-5) g/dL Albumin/Globulin Ratio % TSH (0.270-4.200) mlU/mL Urine Color (Yellow) Urine Turbidity (Clear) Urine pH (5.0-7.0) Ur Specific [place] (1.003-1.030) Urine Protein (Negative) mg/dL Urine Glucose (UA) (Negative) mg/dL Urine Ketones (Negative) mg/dL Urine Blood (Negative) Urine Nitrite (Negative) Urine Bilirubin (Negative) Urine Urobilinogen (<2.0) mg/dL Ur Leukocyte Esterase (Negative) Urine WBC (Auto) (0.0-6.0) /HPF Urine RBC (Auto) (0.0-6.0) /HPF U Epithel Cells (Auto) (0-13.0) /HPF Salicylates (2.8-20.0) mg/dL Urine Opiates Screen Urine Methadone Screen Acetaminophen 5.0 L (10.0-30.0) ug/mL Ur Barbiturates Screen Ur Phencyclidine Scrn Ur Amphetamines Screen U Benzodiazepines Scrn Urine Cocaine Screen U Marijuana (THC) Screen Drugs of Abuse Note Plasma/Serum Alcohol 0.15 H (0-0.07) % SARS-CoV-2 (PCR) (Negative) 08/20/21 08/20/21 Range/Units 00:50 10:20 WBC (4.5-11.0) K/mm3 RBC (3.65-5.03) M/mm3 Hgb (10.1-14.3) gm/dl Hct (30.3-42.9) % MCV (79-97) fl MCH (28-32) pg MCHC (30-34) % RDW (13.2-15.2) % Plt Count (140-440) K/mm3 Lymph % (Auto) (13.4-35.0) % [place] % (Auto) (0.0-7.3) % Eos % (Auto) (0.0-4.3) % Baso % (Auto) (0.0-1.8) % Lymph # (Auto) (1.2-5.4) K/mm3 [place] # (Auto) (0.0-0.8) K/mm3 Eos # (Auto) (0.0-0.4) K/mm3 Baso # (Auto) (0.0-0.1) K/mm3 Seg Neutrophils % (40.0-70.0) % Seg Neutrophils # (1.8-7.7) K/mm3 PT (12.2-14.9) Sec. INR (0.87-1.13) APTT (24.2-36.6) Sec. Sodium (137-145) mmol/L Potassium (3.6-5.0) mmol/L Chloride (98-107) mmol/L Carbon Dioxide (22-30) mmol/L Anion Gap mmol/L BUN (7-17) mg/dL Creatinine (0.6-1.2) mg/dL Estimated GFR ml/min BUN/Creatinine Ratio % Glucose (65-100) mg/dL Calcium (8.4-10.2) mg/dL Magnesium 2.10 (1.7-2.3) mg/dL Total Bilirubin (0.1-1.2) mg/dL AST (5-40) units/L ALT (7-56) units/L Alkaline Phosphatase (35-129) units/L Total Creatine Kinase 159 H (30-135) units/L Total Protein (6.3-8.2) g/dL Albumin (3.9-5) g/dL Albumin/Globulin Ratio % TSH (0.270-4.200) mlU/mL Urine Color (Yellow) Urine Turbidity (Clear) Urine pH (5.0-7.0) Ur Specific [place] (1.003-1.030) Urine Protein (Negative) mg/dL Urine Glucose (UA) (Negative) mg/dL Urine Ketones (Negative) mg/dL Urine Blood (Negative) Urine Nitrite (Negative) Urine Bilirubin (Negative) Urine Urobilinogen (<2.0) mg/dL Ur Leukocyte Esterase (Negative) Urine WBC (Auto) (0.0-6.0) /HPF Urine RBC (Auto) (0.0-6.0) /HPF U Epithel Cells (Auto) (0-13.0) /HPF Salicylates (2.8-20.0) mg/dL Urine Opiates Screen Urine Methadone Screen Acetaminophen (10.0-30.0) ug/mL Ur Barbiturates Screen Ur Phencyclidine Scrn Ur Amphetamines Screen U Benzodiazepines Scrn Urine Cocaine Screen U Marijuana (THC) Screen Drugs of Abuse Note Plasma/Serum Alcohol (0-0.07) % SARS-CoV-2 (PCR) Positive A (Negative)
== END 2021-08-21 13:19 | disposition home or self-care (01) ==
LOC: EEVIPCON 23:59 → ED 23:59
DX: T45.0X1A Poisoning by antiallergic and antiemetic drugs, accidental (unintentional), initial encounter (principal); F10.129 Alcohol abuse with intoxication, unspecified; Z20.822 Contact with and (suspected) exposure to COVID-19; Z13.30 Encounter for screening examination for mental health and behavioral disorders, unspecified; I10 Essential (primary) hypertension; Z87.891 Personal history of nicotine dependence; W19.XXXA Unspecified fall, initial encounter; Y93.89 Activity, other specified; Y92.89 Other specified places as the place of occurrence of the external cause; Y99.8 Other external cause status
CPT/HCPCS: 36415; 70450; 71045; 72125; 80053; 80307; 81001; 82550; 83735; 84443; 85025; 85610; 85730; 93005; 99285; U0003; 80320; G0480